=== PATIENT | female | born 1930 | race Caucasian/White ===

== ENCOUNTER 2017-10-16 16:20 | Emergency (ER) | payer MEDICARE, OTHER ==
[~2017-10-16] VITALS: Ht 167.6 cm; Wt 65.8 kg
[~2017-10-16 16:20] MED LIST: ATOR20TA PO; DULO30CA2 PO; RABE20TA18 PO; SERT50TA PO; TIOT18CA3 IH
[2017-10-16 16:30] VITALS: BP 112/56
[2017-10-16] MEDS ORDERED: AMOX/CLAVULANATE 875 MG TABLET ONE (17:10)
[2017-10-16] MEDS ORDERED: AMOX/CLAVULANATE 875 MG TABLET PO ONE (17:30)
[2017-10-17] MEDS ORDERED: LEVO50TA8 PO (18:11)
== END 2017-10-16 17:48 | disposition home or self-care (01) ==
LOC: ER 16:22
DX: L03.114 Cellulitis of left upper limb (principal); S60.512A Abrasion of left hand, initial encounter; J44.9 Chronic obstructive pulmonary disease, unspecified; F41.9 Anxiety disorder, unspecified; F32.9 Major depressive disorder, single episode, unspecified; W55.03XA Scratched by cat, initial encounter; Y93.89 Activity, other specified; Y92.89 Other specified places as the place of occurrence of the external cause; Y99.8 Other external cause status
CPT/HCPCS: 99283; A4606; Z7610

== ENCOUNTER 2017-10-17 16:12 | Inpatient (IN) | payer MEDICARE, OTHER ==
[~2017-10-17] VITALS: Ht 175.3 cm; Wt 67.1 kg
--- NOTE | 2017-10-17 16:12 | NUR ---
Kevyn sanchez in [facility] - 10/17/17 at 1906 by EMILY DARCIE 878 C/O L HAND SWELLING AND REDNESS X 3 DAYS
--- NOTE | 2017-10-17 17:58 | NUR ---
DR HERNANDEZ WAS PAGED AT [phone]
[2017-10-17] MEDS ORDERED: VANCOMYCIN 1 GM in IV D5W 250 ML IV ONE (18:00)
[2017-10-17] MEDS ORDERED: LEVOFLOXACIN 750 MG /D5W 150ML PIGGYBACK IV ONE (18:00)
[2017-10-17] MEDS ORDERED: LEVO50TA8 PO (18:11)
[2017-10-17 18:18] LABS: BASOPHILS # (AUTO) 0.1 /CMM (0.0-0.2); BASOPHILS % (AUTO) 0.7 % (0.0-2.0); EOSINOPHILS # (AUTO) 0.1 /CMM (0.0-0.7); EOSINOPHILS % (AUTO) 1.3 % (0.0-6.0); HEMATOCRIT 38 % (33-45); LYMPHOCYTES # (AUTO) 1.4 /CMM (0.8-4.8); LYMPHOCYTES % (AUTO) 12.4 % (20.0-44.0); MEAN CORPUSCULAR HEMOGLOBIN 32 PG (26.0-33.0); MEAN CORPUSCULAR HGB CONC 34 g/dl (31.0-36.0); MEAN CORPUSCULAR VOLUME 92 fL (82-100); MONOCYTES # (AUTO) 0.5 /CMM (0.1-1.30); NEUTROPHILS # (AUTO) 8.8 /CMM (1.8-8.9); NEUTROPHILS % (AUTO) 80.6 % (43.0-81.0); PLATELET COUNT (AUTO) 234 /CMM (150-450); RDW COEFFICIENT OF VARIATION 14.5 (11.5-15.0); RED BLOOD CELL COUNT(AUTO) 4.14 MIL/uL (4.0-5.2); WHITE BLOOD COUNT (AUTO) 10.9 K/uL (4.3-11.0)
[2017-10-17] MEDS ORDERED: LEVOFLOXACIN 750 MG /D5W 150ML 750 MG in PREMIX 1 EA IV ONE (18:30)
--- NOTE | 2017-10-17 18:30 | NUR ---
BBRA 878 C/O L HAND SWELLING AND REDNESS X 3 DAYS. NAD NOTED. PT AAO X4, AMB WITH STEADY GAIT. RR EVEN AND UNLABORED. VSS. PENDING MD CALHOUN.
[2017-10-17 18:50] LABS: CALCIUM, SERUM 9.7 mg/dL (8.5-10.1); CARBON DIOXIDE 25 mmol/L (21-32); CHLORIDE 105 mmol/L (98-107); CREATININE 1.1 mg/dL (0.6-1.3); GLUCOSE 99 mg/dL (74-106); POTASSIUM 3.8 mmol/L (3.5-5.1); SODIUM SERUM 140 mmol/L (136-145); UREA NITROGEN, BLOOD 25 mg/dL (7-18)
--- NOTE | 2017-10-17 19:02 | NUR ---
ESTEBAN [employer]OVAN [employer], DR MTZ, GRANT WAS PAGED
--- NOTE | 2017-10-17 19:06 | NUR ---
REPORT GIVEN TO MAURY GONG
--- NOTE | 2017-10-17 19:21 | NUR ---
PT RECEIVED FROM ART IN STABLE CONDITION. PAIN AND ITCHINESS C/O ON LEFT ARM/LEG. NO SOB NOTED. A/O X4 ABLE TO MAKE NEEDS KNOWN. WILL CONTINUE TO MONITOR FOR ANY CHANGES
[2017-10-17] MEDS ORDERED: IV NS 0.9% 1,000 ML IV PRN (19:25)
[2017-10-17] MEDS ORDERED: HYDROCODONE/APAP 5/325MG 1 EACH TABLET PO PRN (19:30)
[2017-10-17] MEDS ORDERED: HYDROCODONE/APAP 10/325MG 1 EA TABLET PO PRN (19:30)
[2017-10-17] MEDS ORDERED: VANCOMYCIN 1 GM in IV D5W 250 ML IV SCH (19:30)
[2017-10-17] MEDS ORDERED: MAG HYDROX/AL HYDROX/SIMETH 30 ML UDC PO PRN (19:30)
[2017-10-17] MEDS ORDERED: MAGNESIUM HYDROXIDE 30 ML UDC PO PRN (19:30)
[2017-10-17] MEDS ORDERED: ACETAMINOPHEN 325 MG TABLET PO PRN (19:30)
[2017-10-17] MEDS ORDERED: Z GUARD REMEDY 2 OZ OINT TP PRN (19:30)
[2017-10-17] MEDS ORDERED: ONDANSETRON HCL/PF 4 MG/2 ML VIAL IVP PRN (19:30)
--- NOTE | 2017-10-17 19:36 | NUR ---
[facility] ROOM 205-2
--- NOTE | 2017-10-17 19:44 | NUR ---
REPORT GIVEN TO BENTON. BED 205-2
[2017-10-17 20:00] VITALS: BP 108/64
[2017-10-17] MEDS ORDERED: FEE PK DOSING 1 MIN EA MC ONE (20:12)
--- NOTE | 2017-10-17 20:30 | NUR ---
RN NOTE ; ADMITTED AN 87Y/O, F, A, OX3. BREATHING EVENLY. NO SOB ON RA. SKIN WARM AND DRY TO TOUCH. L ARM SWOLLEN W/ REDNESS. NO C/O PAIN OR DISCOMFORT AT THIS TIME. PT AMBULATED TO THE BED W/ ASSISTANCE. RECEIVING LEVAQUIN IV FROM ER. IV INTACT AND PATENT. MEDICAL HX WAS PROVIDED BY THE PT. NEEDS ATTENDED . CALL LIGHT WITHIN REACH. WILL CONT TO MONITOR AND WILL F/U W/ MD'S ORDERS/
[2017-10-17] MEDS ORDERED: PIPERACILLIN /TAZOBACTAM 4.5 G in IV D5W 50 ML IV SCH (21:00)
[2017-10-17] MEDS ORDERED: ENOXAPARIN SODIUM 40 MG/0.4 ML DISP.SYRIN SQ SCH (21:00)
[2017-10-17] MEDS ORDERED: ATORVASTATIN 10 MG TABLET PO SCH (22:00)
[2017-10-17] MEDS ORDERED: ZOLPIDEM TARTRATE 5 MG TABLET PO PRN (22:00)
--- NOTE | 2017-10-17 22:32 | NUR ---
TYLENOL GIVEN PER PT'S REQUEST FOR C/O MILD HEADACHE. WILL CONT TO MONITOR,
[2017-10-17] MEDS: ZOSYN IVPB 2.25 G in IV D5W 50ml IV SCH (23:26)
[2017-10-18] MEDS: ZOSYN IVPB 2.25 G in IV D5W 50ml IV SCH ×2 (05:32→12:47)
--- NOTE | 2017-10-18 06:53 | NUR ---
PT IN BED DOZING INTERMITTENTLY. BREATHING EVENLY. NO SOB. NO ACUTE EVENT DURING THE NIGHT. STILL W/ REDNESS AND EDEMA ON LUE. NO C/O PAIN OR DISCOMFORT, ON ONGOING IVF AND ABX. PAOLA WELL. NEEDS ATTENDED. ASSISTED W/ ADLS. BED LOW LOCKED ,CALL LIGHT WITHIN REACH. WILL CONT TO MONITOR, AND WILL ENDORSE TO AM SHIFT FOR PEYMAN
[2017-10-18] MEDS ORDERED: LEVOTHYROXINE SODIUM 50 MCG TABLET PO SCH (07:30)
[2017-10-18 08:00] VITALS: BP 117/58
[2017-10-18] MEDS ORDERED: DULOXETINE HCL 30 MG CAPSULE.DR PO SCH (09:00)
--- NOTE | 2017-10-18 09:00 | NUR ---
MS RN OPENING NOTE PATIENT IS ALERT AND ORIENTED X4. NO PAIN AT THIS TIME. NO SOB OR DISTRESS NOTED. CALL LIGHT WITHIN REACH. SAFETY MEASURES IMPLEMENTED. ABLE TO COMMUNICATE NEEDS. IV INTACT AND PATENT NO REDNESS OR SWELLING NOTED. WILL CONTINUE TO MONITOR TO MONITOR
[2017-10-18 11:03] LABS: BASOPHILS % (AUTO) 0.2 % (0.0-2.0); EOSINOPHILS # (AUTO) 0.2 /CMM (0.0-0.7); EOSINOPHILS % (AUTO) 2.5 % (0.0-6.0); HEMATOCRIT 35 % (33-45); HEMOGLOBIN 11.6 g/dL (11.5-14.8); LYMPHOCYTES % (AUTO) 14.5 % (20.0-44.0); MEAN CORPUSCULAR HEMOGLOBIN 31 PG (26.0-33.0); MEAN CORPUSCULAR HGB CONC 33 g/dl (31.0-36.0); MEAN CORPUSCULAR VOLUME 94 fL (82-100); MONOCYTES # (AUTO) 0.6 /CMM (0.1-1.30); MONOCYTES % (AUTO) 7.9 % (2.0-12.0); NEUTROPHILS # (AUTO) 5.3 /CMM (1.8-8.9); NEUTROPHILS % (AUTO) 74.9 % (43.0-81.0); PLATELET COUNT (AUTO) 178 /CMM (150-450); RDW COEFFICIENT OF VARIATION 15.2 (11.5-15.0); RED BLOOD CELL COUNT(AUTO) 3.72 MIL/uL (4.0-5.2); WHITE BLOOD COUNT (AUTO) 7.1 K/uL (4.3-11.0)
[2017-10-18] MEDS ORDERED: METR500T PO (11:06)
[2017-10-18] MEDS ORDERED: SULF1TAB48 PO (11:06)
[2017-10-18 11:17] LABS: CALCIUM, SERUM 9.3 mg/dL (8.5-10.1); CARBON DIOXIDE 26 mmol/L (21-32); CHLORIDE 105 mmol/L (98-107); CREATININE 1.1 mg/dL (0.6-1.3); GLUCOSE 79 mg/dL (74-106); MAGNESIUM 2.1 mg/dL (1.8-2.4); PHOSPHORUS 3.4 mg/dL (2.5-4.9); SODIUM SERUM 139 mmol/L (136-145); UREA NITROGEN, BLOOD 22 mg/dL (7-18)
[2017-10-18 11:33] LABS: CHOLESTEROL 164 mg/dL (<200); HDL CHOLESTEROL 85 mg/dL (40-60); LDL 68 mg/dL (0-99); THYROID STIMULATING HORMONE 4.906 uIU/mL (0.358-3.74); TRIGLYCERIDES 66 mg/dL (30-150)
--- NOTE | 2017-10-18 14:48 | NUR ---
MS PROJECT ASSOCIATE NOTE PATIENT IS ALERT AND ORIENTED x4. NO PAIN AT THIS TIME. NO SOB OR DISTRESS NOTED. CALL LIGHT WITHIN REACH AT ALL TIMES. SAFETY MEASURES IMPLEMENTED. ALL DUE MEDICATIONS GIVEN ORDERED. ALL NURSING CARE NEEDS ATTENDED TO NEEDED. ALL DISCHARGE INSTRUCTIONS GIVEN TO PATIENT, VERBALIZATION GIVEN BACK. IV REMOVED, SKIN INTACT. PRESCRIPTION GIVEN TO PATIENT UPON DISCHARGE. ALL BELONGINGS WITH PATIENT. LEFT VIA TAXI TO HOME
[2017-10-18] MEDS ORDERED: LACTOBACILLUS RHAMNOSUS GG 1 EACH CAP.SPRINK PO SCH (17:00)
[2017-10-18] MEDS ORDERED: VANCOMYCIN 1 GM in IV D5W 250 ML IV SCH (18:00)
[2017-10-18] MEDS ORDERED: SERTRALINE HCL 50 MG TABLET PO SCH (18:00)
== END 2017-10-18 14:54 | disposition home or self-care (01) | DRG 603 ==
LOC: ER 16:13 → MEDSG2 19:58
DX: L03.114 Cellulitis of left upper limb (principal); D69.2 Other nonthrombocytopenic purpura; J44.9 Chronic obstructive pulmonary disease, unspecified; E03.9 Hypothyroidism, unspecified; E78.5 Hyperlipidemia, unspecified; F32.9 Major depressive disorder, single episode, unspecified; F41.9 Anxiety disorder, unspecified; W55.03XA Scratched by cat, initial encounter; Y93.9 Activity, unspecified; Y92.009 Unspecified place in unspecified non-institutional (private) residence as the place of occurrence of the external cause; Z87.891 Personal history of nicotine dependence; M79.671 Pain in right foot
CPT/HCPCS: 36415; 80048-TC; 80061-TC; 83735-TC; 84100-TC; 84443-TC; 85025-TC; 87040-TC; A4216; A4606; J1650; J1956; J2543; J3370; J7030; J7060; Z7610